=== PATIENT | female | born 1960 | race Caucasian/White ===

== ENCOUNTER 2017-12-22 12:29 | Emergency (ER) | END 2017-12-22 16:29 | disposition home or self-care (01) ==

== ENCOUNTER 2017-12-26 15:47 | Emergency (ER) | END 2017-12-26 19:01 | disposition home or self-care (01) ==

== ENCOUNTER 2018-11-26 10:04 | Emergency (ER) | payer OTHER ==
[~2018-11-26] VITALS: Wt 89.0 kg
[~2018-11-26 10:04] MED LIST: ACET325T33 PO; ALBU18HF INHALATION; ASPI-817; AZIT250T PO; BEN50 PO; BENZ-6 PO; COLL1PAC12 TOP; D-ME118S6 PO; D-ME473S2 PO; FLUT9.9S NASAL; HYDR25TA6; HYDR453.2 TOP; IBUP-1542 PO; LISI-471; PRED20TA PO; PSEU30TA38 PO; SIMV20TA2
[2018-11-26 10:08] VITALS: RESP 18
--- NOTE | 2018-11-26 11:31 | ERD ---
ER Documentation Chief Complaint Chief Complaint COUGH X 1 MOS, CHEST CONGESTION HPI 58-year-old female, presents to the emergency department, complaining of upper respiratory symptoms including persistent productive cough of greenish sputum, sore throat, runny nose and general malaise. Medications taken: [id number] NyQuil and DayQuil with mild improvement of the symptoms. The patient is requesting a prescription for antibiotics. She denies chest pain, no shortness of breath. ROS All systems reviewed and are negative except as per history of present illness. Medications Home Meds Active Scripts Diphenhydramine Hcl* (Diphenhydramine Hcl*) 12.5 Mg/5 Ml Elixir, 5 ML PO QHS PRN for COUGH, #4 OZ Prov:DARIN ROMERO MD 11/26/18 Azithromycin* (Zithromax*) 250 Mg Tablet, 250 MG PO .ZPACK DIRECTED, #6 TAB TAKE 500 MG (2 TABS) THE FIRST DAY THEN 250 MG (1 TAB) DAYS 2-5 Prov:DARIN ROMERO MD 11/26/18 Albuterol Sulfate* (Proair HFA*) 8.5 Gm Hfa.aer.ad, 2 PUFF INH Q4H PRN for WHEEZING AND SOB, #1 INHALER Prov:DARIN ROMERO MD 11/26/18 Albuterol Sulfate* (Ventolin HFA*) 18 Gm Hfa.aer.ad, 2 PUFF INHALATION Q6H, #1 INHALER Prov:MICHAEL RIVAS PA-C 12/26/17 Azithromycin* (Zithromax*) 250 Mg Tablet, 250 MG PO .ZPACK DIRECTED, #6 TAB TAKE 500 MG (2 TABS) THE FIRST DAY THEN 250 MG (1 TAB) DAYS 2-5 Prov:MICHAEL RIVAS PA-C 12/26/17 Acetaminophen* (Tylenol*) 325 Mg Tablet, 2 TAB PO Q8 PRN for PAIN AND OR ELEVATED TEMP, #20 TAB Prov:NIDIA ROSARIO PA-C 12/22/17 Ibuprofen* (Motrin*) 600 Mg Tab, 600 MG PO Q6, #30 TAB Prov:NIDIA ROSARIO PA-C 12/22/17 Dextromethorphan Hb-Promethazine Hcl* (Promethazine DM* Syrup) 473 Ml Syrup, 5 ML PO Q6 PRN for COUGH, #100 ML Prov:NIDIA ROSARIO PA-C 12/22/17 Benzonatate* (Tessalon Perle*) 100 Mg Capsule, 100 MG PO Q8H PRN for COUGH, #30 CAP Prov:NIDIA ROSARIO PA-C 12/22/17 Fluticasone Propionate (Flonase Allergy Relief) 9.9 Ml [place].susp, 1 SPRAY NASAL BID, #1 BOTTLE TO EACH NOSTRIL Prov:NIDIA ROSARIO PA-C 12/22/17 Pseudoephedrine Hcl* (Pseudoephedrine Hcl*) 30 Mg Tablet, 30 MG PO Q6 PRN for CONGESTION, #30 TAB Prov:NIDIA ROSARIO PA-C 12/22/17 Dextromethorphan Hb-Promethazine Hcl (Promethazine DM Syrup) 180 Ml Syrup, 5 ML PO Q6H PRN for COUGH, #4 OZ Prov:HALIE CASTELLANOS 12/20/15 Azithromycin* (Zithromax*) 250 Mg Tablet, 250 MG PO .YoselinPABALTAZAR DIRECTED, #6 TAB TAKE 500 MG (2 TABS) THE FIRST DAY THEN 250 MG (1 TAB) DAYS 2-5 Prov:HALIE CASTELLANOS 12/20/15 Hydrocortisone* Topical (Hydrocortisone* Topical) 1%-28.3 Gm Oint, 1 APPLIC TOP TID for 5 Days, TUB Prov:HARDEEP OLIVIER 04/10/15 Colloidal Oatmeal* (Oatmeal Bath*) 1 Pkt Packet, 1 PKT TOP QID for 7 Days, PACKET (USE FOR BATH) Prov:GINO OLIVIERA 04/10/15 Prednisone* (Prednisone*) 20 Mg Tab, 40 MG PO DAILY for 4 Days, TAB Prov:GINO OLIVIERA 04/10/15 Diphenhydramine Hcl* (Benadryl*) 50 Mg Cap, 50 MG PO Q6 PRN for ITCHING, #20 CAP Prov:HARDEEP OLIVIER 04/10/15 Reported Medications Aspirin* (Aspirin* EC) 81 Mg Tablet. 2/1/11 Simvastatin (Simvastatin) 20 Mg Tablet 12/05/10 Hydrochlorothiazide (Hydrochlorothiazide) 25 Mg Tablet 12/05/10 Lisinopril* (Lisinopril*) 20 Mg Tablet 12/05/10 Allergies Allergies: Coded Allergies: No Known Allergy (Verified , 11/26/18) PMhx/Soc History of Surgery: No Anesthesia Reaction: No Hx Neurological Disorder: No Hx Respiratory Disorders: No Hx Cardiac Disorders: Yes (HTN, HYPERLIPIDEMIA) Hx Psychiatric Problems: No Hx Miscellaneous Medical Probl: Yes (DM) Hx Alcohol Use: No Hx Substance Use: No Hx Tobacco Use: No Smoking Status: Never smoker FmHx Family History: diabetes; No coronary disease Physical Exam Vitals Vital Signs Date Temp Pulse Resp B/P (MAP) Pulse Ox O2 O2 Flow FiO2 Time Delivery Rate 11/26/18 97.4 69 18 133/67 99 10:08 (89) Physical Exam Const: No acute distress Head: Atraumatic Eyes: Normal Conjunctiva ENT: Normal External Ears, Nose and Mouth. Neck: Full range of motion. No meningismus. Resp: Clear to auscultation bilaterally Cardio: Regular rate and rhythm, no murmurs Abd: Soft, non tender, non distended. Normal bowel sounds Skin: No petechiae or rashes Back: No midline or flank tenderness Ext: No cyanosis, or edema Neur: Awake and alert Psych: Normal Mood and Affect Procedures/MDM Differential diagnosis include but not limited to: Respiratory infection bacterial/viral/fungal. Asthma, pneumonitis, allergies, GERD. Less likely foreign body aspiration, cardiac related, aspiration pneumonia, malignancy. Physical examination and clinical presentation consistent most likely with viral syndrome. During the ED course the patient remained stable, no new complaints. Clinical impression discussed with the patient who agrees with management. The patient is stable to be treated outpatient and will be discharged home. Antibiotics not indicated at this time. The mother patient is requesting a prescription for antibiotics, a prescription will be given with instructions to continue symptomatic and conservative management for 3 days, trying to avoid use of unnecessary antibiotics due to the possible side effects and complications. if there is no improvement of the symptoms in 72 hours, okay to start antibiotics. some side effects of prescribed medications (headache, rash, nausea, vomiting, diarrhea, drowsiness, hypertension, interactions with other medications) were reviewed. The patient was instructed to follow up with the primary care provider in the next 48h. If symptoms persist, worsen or new symptoms develop, then patient should return to the ED immediately. Disclaimer: Inadvertent spelling and grammatical errors are likely due to EHR/dictation software use and do not reflect on the overall quality of patient care. Also, please note that the electronic time recorded on this note does not necessarily reflect the actual time of the patient encounter. Departure Diagnosis: Primary Impression: Cough Condition: Stable Additional Instructions: Muchas jade por [facility] para avitia servicio. Esperamos que en avitia visita a la wes de emergencia avitia problema medico haya sido solucionado y que se sienta mucho mejor. Para estar seguros que avitia mejoria sigue en proceso, le pedimos el favor de hacer ted shannan de seguimiento medico con avitia doctor primario en los proximos 2-4 [place]. Lleve con usted estos documentos y las medicinas recetadas. Si herman sintomas empeoran, NO SE ESPERE, por favor regrese a wes de emergencia INMEDIATAMENTE. En sara que usted no tenga un mdico de atencin primaria: Llame al mdico o clnica comunitaria de referencia que aparece abajo mirna las horas de consultorio para hacer ted shannan para que le vean. CLINICAS: [facility] [phone] [facility] [phone] [facility] [phone] [facility] [phone] [facility] [phone] [id number] [facility]. [phone] MD Nov 26, 2018 11:31
[2018-11-26] MEDS ORDERED: AZIT250T PO (12:08)
[2018-11-26] MEDS ORDERED: DIPH12.59 PO (12:08)
[2018-11-26] MEDS ORDERED: ALBU8.5H8 INH (12:08)
[2018-11-26 12:17] VITALS: BP 128/75; PULSE 75
[2018-12-05] MEDS ORDERED: ONDA4TAB14 PO (13:42)
[2018-12-05] MEDS ORDERED: PANT40TA3 PO (13:42)
== END 2018-11-26 12:18 | disposition home or self-care (01) ==
LOC: FTE 10:04
DX: R05 Cough (principal); I10 Essential (primary) hypertension; E11.9 Type 2 diabetes mellitus without complications; Z79.82 Long term (current) use of aspirin
CPT/HCPCS: 99283